=== PATIENT | female | born 1950 | race Caucasian/White ===

== ENCOUNTER 2022-12-12 21:33 | Inpatient (IN) | payer MEDICARE, MEDICAID ==
[~2022-12-12] VITALS: Ht 149.9 cm; Wt 37.1 kg
[~2022-12-12 21:33] MED LIST: BREZTRI AEROS10.7 GM IH; IPRATROPIUM BROM3 M1 IH; LIPITOR 40MG TA40 MG PO; PROAIR HFA0.09 MG/AC IH; THEO-24 30300 MG/CAP PO; VITAMIN D31000 IU PO; ZESTRIL2.5 MG PO; ZITHROMAX 250M250 MG PO
[2022-12-12 22:40] LABS: BASO % 0.2 % (0.0-2.0); EOS # 0.1 K/mm3 (0.0-0.7); EOS % 0.7 % (0.0-4.0); GRAN % 83.7 % (42.2-75.2); HEMOGLOBIN 13.5 g/dl (12.5-16.0); LYMPH # 0.6 K/mm3 (1.2-3.4); LYMPH % 7.4 % (20.0-51.0); MEAN CELL VOLUME 94 fl (80.0-100.0); MEAN CORPUSCULAR HEMOGLOBIN 30 pg (27-31); MEAN CORPUSCULAR HGB CONC 32 g/dl (33.0-37.0); MEAN PLATELET VOLUME 11.5 fl (7.4-10.4); MONO # 0.6 K/mm3 (0.1-0.6); MONO % 7.6 % (1.7-9.3); PLATELET COUNT 123 K/mm3 (130-400); RED BLOOD COUNT 4.48 M/mm3 (4.10-5.30); REDCELL DISTRIBUTION WIDTH-CV 12.7 % (11.5-14.5)
[2022-12-12 22:53] LABS: ALBUMIN 3.7 gm/dL (3.4-4.8); BILIRUBIN,TOTAL 0.4 mg/dL (0.2-1.2); CALCIUM 9.3 mg/dL (8.4-10.2); CREATININE, serum 0.7 mg/dL (0.57-1.11); POTASSIUM 4.2 mmol/L (3.5-4.5); TOTAL PROTEIN 6.8 gm/dL (6.2-8.1)
[2022-12-12 23:10] LABS: TROPONIN-I 0.301 ng/mL (0.00-0.033)
[2022-12-13] VITALS (13 sets, daily range): BP systolic 80–149; BP diastolic 42–85; PULSE 70–81; TEMP 97.6–98
[2022-12-13] MEDS ORDERED: PRINIVIL2.5 MG PO (00:39)
[2022-12-13] MEDS ORDERED: VITAMIN C500 MG PO (00:41)
[2022-12-13] MEDS ORDERED: MULTIPLE VITAMI1 CAP PO (00:41)
--- NOTE | 2022-12-13 01:40 | NUR ---
notified Nallely Rosenberg APRN of troponin
--- NOTE | 2022-12-13 05:27 | NUR ---
pt admitted to room 331 per WC @ 0145 accompanied by orthophotography technician and pt's daughter, Saranya. pt able to ambulate to bed with minimal assistance, right arm splinted and in arm sling. pt has large hematoma to right forehead from fall this evening. admission assessment, intake and med rec done, oriented pt and her daughter to room and poc. INT present in left wrist, LR started @ 75cc/hr. morphine given x1 along with scheduled tylenol. pt on O2 @ 4L per NC which is her baseline, lungs sounds coarse with moist cough.
[2022-12-13 07:13] LABS: BASO % 0.4 % (0.0-2.0); EOS # 0.1 K/mm3 (0.0-0.7); EOS % 0.9 % (0.0-4.0); GRAN # 4.1 K/mm3 (1.4-6.5); GRAN % 73.6 % (42.2-75.2); LYMPH # 0.8 K/mm3 (1.2-3.4); LYMPH % 14.4 % (20.0-51.0); MEAN CELL VOLUME 93 fl (80.0-100.0); MEAN CORPUSCULAR HGB CONC 33 g/dl (33.0-37.0); MONO # 0.6 K/mm3 (0.1-0.6); MONO % 10.5 % (1.7-9.3); PLATELET COUNT 99 K/mm3 (130-400); RED BLOOD COUNT 3.51 M/mm3 (4.10-5.30); REDCELL DISTRIBUTION WIDTH-CV 12.9 % (11.5-14.5)
--- NOTE | 2022-12-13 07:15 | NUR ---
RT reported to this nurse that pt had emesis episode. called MARCELLUS Wyatt for order for ivon
[2022-12-13 07:16] LABS: HEMATOCRIT 32.5 % (37.0-47.0); HEMOGLOBIN 10.8 g/dl (12.5-16.0); MEAN CORPUSCULAR HEMOGLOBIN 31 pg (27-31)
[2022-12-13 07:23] LABS: CALCIUM 8.1 mg/dL (8.4-10.2); CREATININE, serum 0.55 mg/dL (0.57-1.11); POTASSIUM 4.2 mmol/L (3.5-4.5)
--- NOTE | 2022-12-13 08:30 | NUR ---
pt asleep upon entry, easily arousable. reports feeling better since given zofran. denies feeling dizzy or lightheaded. vss and tele in place. reports pain is tolerable. pt on 4L nasal cannula which is her baseline at home. scds to ble. hematoma to right side of forehead. splint and catrina wrap to right wrist. pt has a productive cough that she has had for about 3 weeks. fluids infusing into left hand. fall precautions in place. pt denies needs at this time. call light in reach.
--- NOTE | 2022-12-13 11:48 | NUR ---
notified by MATEUS Verdugo that pts blood pressure is reading 80s/40s. manual bp taken reading 86/48, pt asymptomatic. spoke to dr Geller and was instructed to increase fluids to 150ml/hr and will monitor pt. pt laying flat. will recheck bp.
--- NOTE | 2022-12-13 12:21 | NUR ---
yard worker met with patient to discuss discharge planning. Patient confirmed she lives in [place] with her daughter and son in law. Daughter is Saranya, P# [phone]. Patient reports her primary care physician is Dr. Rucker and preferred pharmacy is [facility]. Patient reports she has not had any difficulty with affording her medication as she has "extra help." Patient reports she does not have any DPOA-HC and is not interested in establishing one at this time. Patient reports she has an O2 concentrator and nebulizer. Patient reports prior to hospitalization she was independent at home. SW and doctor would like to wait to see what PT/OT evaluations recommend, patient agreed. Discharge Plan: TBD, pending evaluations
--- NOTE | 2022-12-13 12:52 | NUR ---
updated Dr Geller of pts bp of 88/48 per MATEUS Verdugo. recommends to continue to monitor pt due to being asymptomatic.
[2022-12-13 13:23] LABS: COLLECTION METHOD CLEAN CATCH
[2022-12-13] MEDS ORDERED: DELTA 8 PO (14:00)
[2022-12-13 14:36] LABS: SQUAMOUS EPITHELIAL 0-2 /hpf (0-10); URINE APPEARANCE Clear (CLEAR/HAZY); URINE BACTERIA None Seen /hpf (NONE SEEN); URINE BLOOD Negative (NEGATIVE); URINE COLOR Yellow (YELLOW); URINE GLUCOSE Negative (NEGATIVE); URINE KETONE 1+ (NEGATIVE); URINE NITRATE Negative (NEGATIVE); URINE PROTEIN(semi-quant) TRACE (NEGATIVE); URINE RBC 0-2 /hpf (0-2); URINE UROBILINOGEN 0.2 E.U/dL (0.2-1.0)
--- NOTE | 2022-12-13 16:09 | NUR ---
updated dr garcia on pts bp of 82/50, fluids infusing at 150ml/hr. H&H ordered. pt reports feeling "tired", otherwise asymptomatic.
[2022-12-13 16:41] LABS: HEMATOCRIT 31.7 % (37.0-47.0); HEMOGLOBIN 9.9 g/dl (12.5-16.0)
--- NOTE | 2022-12-13 18:59 | NUR ---
resting in bed working on computer, bedside shift report received from MATEUS Blunt
--- NOTE | 2022-12-13 19:25 | NUR ---
remains sitting up in bed, full assessment completed, see interventions for further info, denies needs at th is time
--- NOTE | 2022-12-13 21:00 | NUR ---
in bed and appears to be sleeping with lights on,
--- NOTE | 2022-12-13 23:06 | NUR ---
c/o pain to right arm, medicated with roxicodone 5mg
[2022-12-14] VITALS (25 sets, daily range): BP systolic 79–148; BP diastolic 52–91; PULSE 73–114; TEMP 97.6–98.3
--- NOTE | 2022-12-14 00:45 | NUR ---
appears to be sleeping, resp quiet and easy
--- NOTE | 2022-12-14 02:14 | NUR ---
awakened and medicated with scheduled tylenol
--- NOTE | 2022-12-14 05:28 | NUR ---
has slept most of the night without c/os
--- NOTE | 2022-12-14 05:54 | NUR ---
awake now and on her computer
[2022-12-14 06:25] LABS: HEMOGLOBIN 10.5 g/dl (12.5-16.0); MEAN CELL VOLUME 93 fl (80.0-100.0); MEAN CORPUSCULAR HEMOGLOBIN 31 pg (27-31); MEAN CORPUSCULAR HGB CONC 33 g/dl (33.0-37.0); MEAN PLATELET VOLUME 11.3 fl (7.4-10.4); PLATELET COUNT 82 K/mm3 (130-400); RED BLOOD COUNT 3.41 M/mm3 (4.10-5.30); REDCELL DISTRIBUTION WIDTH-CV 12.8 % (11.5-14.5)
[2022-12-14 06:28] LABS: HEMATOCRIT 31.8 % (37.0-47.0)
[2022-12-14 06:44] LABS: ALBUMIN 2.7 gm/dL (3.4-4.8); CALCIUM 7.9 mg/dL (8.4-10.2); CREATININE, serum 0.67 mg/dL (0.57-1.11); PHOSPHOROUS 2.8 mg/dL (2.3-4.7); POTASSIUM 4.1 mmol/L (3.5-4.5)
--- NOTE | 2022-12-14 06:51 | NUR ---
bedside shift report given to MATEUS Villasenor
[2022-12-14 12:03] LABS: HEMOGLOBIN 11.9 g/dl (12.5-16.0); MEAN CELL VOLUME 95 fl (80.0-100.0); MEAN CORPUSCULAR HEMOGLOBIN 31 pg (27-31); MEAN CORPUSCULAR HGB CONC 33 g/dl (33.0-37.0); MEAN PLATELET VOLUME 11.6 fl (7.4-10.4); PLATELET COUNT 84 K/mm3 (130-400); RED BLOOD COUNT 3.82 M/mm3 (4.10-5.30); REDCELL DISTRIBUTION WIDTH-CV 12.9 % (11.5-14.5)
[2022-12-14 12:05] LABS: HEMATOCRIT 36.1 % (37.0-47.0)
[2022-12-14 12:11] LABS: INR 1.1 (0.8-3.0); PROTHROMBIN TIME 11.6 SECONDS (9.7-12.8)
[2022-12-14 12:14] LABS: PARTIAL THROMBOPLASTIN TIME 35.1 SECONDS (26.0-37.0)
[2022-12-14 12:17] LABS: CALCIUM 8.4 mg/dL (8.4-10.2); CREATININE, serum 0.63 mg/dL (0.57-1.11); POTASSIUM 4.2 mmol/L (3.5-4.5)
--- NOTE | 2022-12-14 15:31 | NUR ---
Planning Consultant followed up with patient to review discharge plan. Patient had just returned from her heart cath but was open to talking. Patient stated she plans to return home at time of discharge. SW discussed Home Health services and patient would be open to this. SW provided Medicare.gov list of HH agencies for review. SW contacted patient's daughter, Saranya to discuss the above update. Saranya is in agreement with patient returning home with Home Health. Saranya advised she won't be as available this week as she is hosting a conference in [place], so her , [place] (ph#[phone]) is a good point of contact and support. Discharge Plan: Home with HH
--- NOTE | 2022-12-14 20:00 | NUR ---
PT reporting SOB, asking for RT tx, therapist @ bedside shortly afterwards, reported feeling much better after tx. remains on 4L O2 per her baseline.
--- NOTE | 2022-12-14 20:20 | NUR ---
notified Michael GERMAIN, of pt's sob and moist cough, asked to stop fluids, order rec'd. IV to INT
[2022-12-15 00:42] VITALS: BP 93/45; PULSE 78; TEMP 97.8
[2022-12-15 03:02] VITALS: BP 132/63; PULSE 85; TEMP 97.8
[2022-12-15 05:26] LABS: HEMATOCRIT 33.4 % (37.0-47.0); HEMOGLOBIN 11.1 g/dl (12.5-16.0); MEAN CELL VOLUME 91 fl (80.0-100.0); MEAN CORPUSCULAR HEMOGLOBIN 30 pg (27-31); MEAN CORPUSCULAR HGB CONC 33 g/dl (33.0-37.0); MEAN PLATELET VOLUME 11.7 fl (7.4-10.4); PLATELET COUNT 84 K/mm3 (130-400); RED BLOOD COUNT 3.67 M/mm3 (4.10-5.30); REDCELL DISTRIBUTION WIDTH-CV 12.6 % (11.5-14.5)
[2022-12-15 05:31] LABS: ALBUMIN 2.9 gm/dL (3.4-4.8); CALCIUM 8.3 mg/dL (8.4-10.2); CREATININE, serum 0.59 mg/dL (0.57-1.11); PHOSPHOROUS 2.4 mg/dL (2.3-4.7); POTASSIUM 3.8 mmol/L (3.5-4.5)
--- NOTE | 2022-12-15 05:50 | NUR ---
pt on baseline 4L per NC, tolerating po wo N/V, IVF to INT. no c/o pain this shift. up to restroom with assist of 1.
[2022-12-15 07:17] VITALS: BP 134/85; PULSE 80; TEMP 98.3
--- NOTE | 2022-12-15 07:42 | NUR ---
pt resting in bed, a&ox4. vss and tele in place. pt reports pain has subsided since given pain medication. pt denies chest pain or feeling SOB. pt has wet cough. lung sounds are diminished. right groin insertion site is cdi. scds to ble. splint and sling to right arm is cdi. bruising is present to the right side of her face. fall precautions in place. INT to left wrist. pt on 4L nasal cannula. pt denies needs at this time. call light in reach.
[2022-12-15 07:50] VITALS: BP_SYST 134
[2022-12-15] MEDS ORDERED: ROXICODONE 55 MG/TAB PO (09:44)
[2022-12-15 11:19] VITALS: BP 127/68; PULSE 71; TEMP 97.7
[2022-12-15 12:29] VITALS: BP_SYST 127
--- NOTE | 2022-12-15 13:35 | NUR ---
pt ride here for pt, escorted out by wheelchair.
--- NOTE | 2022-12-15 13:35 | NUR ---
INT discontinued. discharge instructions given to pt. all questions answered.
--- NOTE | 2022-12-15 14:11 | NUR ---
Print Finishing Worker met with patient to follow up on Home Health preference. Patient reviewed Medicare.gov list of HH agenices and selected [facility]. MARITZA contacted Maggie with [facility] and faxed referral with discharge orders. Maggie advised they can accept patient and she will contact her to set up the first visit. MARITZA contacted patient's daughter, Saranya to update on the above. Discharge Plan: Home with [facility]
== END 2022-12-15 13:30 | disposition home health service (06) | DRG 280 ==
LOC: COL.ER 21:33 → SURG 12-13 00:15 → COL.ER 12-13 00:15 → SURG 12-13 00:15
PROVIDERS: Internal Medicine; Nurse Practitioner; Nurse Practitioner Family; ADMIT Hospitalist
PROC: 4A023N7 Measurement of Cardiac Sampling and Pressure, Left Heart, Percutaneous Approach (ICD-10-PCS; principal; 2022-12-14)
PROC: B2111ZZ Fluoroscopy of Multiple Coronary Arteries using Low Osmolar Contrast (ICD-10-PCS; 2022-12-14)
DX: I47.20 Ventricular tachycardia, unspecified (principal); E43 Unspecified severe protein-calorie malnutrition; I21.A1 Myocardial infarction type 2; S52.551A Other extraarticular fracture of lower end of right radius, initial encounter for closed fracture; J96.11 Chronic respiratory failure with hypoxia; Z68.1 Body mass index [BMI] 19.9 or less, adult; S00.83XA Contusion of other part of head, initial encounter; I95.9 Hypotension, unspecified; Z20.822 Contact with and (suspected) exposure to COVID-19; J44.9 Chronic obstructive pulmonary disease, unspecified; I10 Essential (primary) hypertension; E78.5 Hyperlipidemia, unspecified; D69.6 Thrombocytopenia, unspecified; R73.9 Hyperglycemia, unspecified; W18.39XA Other fall on same level, initial encounter; K76.9 Liver disease, unspecified; Z90.49 Acquired absence of other specified parts of digestive tract; Z99.81 Dependence on supplemental oxygen; Z87.891 Personal history of nicotine dependence; Z88.1 Allergy status to other antibiotic agents; Z88.8 Allergy status to other drugs, medicaments and biological substances; Z85.038 Personal history of other malignant neoplasm of large intestine; Z79.899 Other long term (current) drug therapy; Y93.89 Activity, other specified; Y92.89 Other specified places as the place of occurrence of the external cause; Z92.21 Personal history of antineoplastic chemotherapy; Z92.3 Personal history of irradiation; Z23 Encounter for immunization
CPT/HCPCS: A9500-JZ; C1760; C1894; G0378; J1644; J2250; J2270; J2405; J2785; J3010; J7030; J7120; Q9967